=== PATIENT | female | born 1970 | race Two or more races ===

== ENCOUNTER 2018-10-10 07:13 | Emergency (ER) | payer MEDICAID, MEDICARE ==
[~2018-10-10] VITALS: Ht 149.9 cm; Wt 64.0 kg
[2018-10-10 07:15] VITALS: BP 119/96
== END 2018-10-10 09:23 | disposition home or self-care (01) ==
LOC: ER 07:13
DX: S29.8XXA Other specified injuries of thorax, initial encounter (principal); S21.101A Unspecified open wound of right front wall of thorax without penetration into thoracic cavity, initial encounter; W19.XXXA Unspecified fall, initial encounter; Y93.89 Activity, other specified; Y92.89 Other specified places as the place of occurrence of the external cause; Y99.8 Other external cause status
CPT/HCPCS: 71046; 71101